=== PATIENT | female | born 1965 ===

== ENCOUNTER 2022-07-19 12:28 | Outpatient (RCR) | payer MEDICARE, MEDICAID, SELFPAY ==
--- NOTE | 2022-07-19 12:33 | HO.PHPIOP ---
Pt met with this technical report writer today 07/19/2022 for the purpose of completing an intake assessment for PHP treatment. Pt was referred through [facility] where she received treatment for Alcohol use disorder. Pt arrived to her appt with her sister,her sister informed this technical report writer that when she picked her sister up for her appt.,she found her passed out. This technical report writer discussed PHP with the Pt.,she did not appear interested in PHP. This technical report writer asked the Pt if she was actively drinking alcohol,the Pt responded yes,everyday This technical report writer informed Pt that she would not be able to start the program and recommended that she return to [facility] for detox and rehabilitation,this technical report writer provided [facility]'s phone # to the Pt. The Pt responded. I'll think about This technical report writer informed the Pt that once she completes detox/rehab,she can begin PHP.
== END 2022-07-19 23:59 | disposition home or self-care (01) ==
LOC: HO.PHPA 12:28
PROVIDERS: Visit Provider Psychiatry & Neurology Psychiatry
DX: F41.9 Anxiety disorder, unspecified (principal)

== ENCOUNTER 2022-12-13 12:45 | Outpatient (RCR) | payer MEDICARE, MEDICAID, SELFPAY ==
--- NOTE | 2022-12-14 09:22 | PC.NURSE ---
Ermelinda did not show up to the program this morning. I called her to f/u and left her a message to call me back.
--- NOTE | 2022-12-14 09:48 | PC.NURSE ---
I called Ermelinda and left her a second message to call me back and have not heard from her. I called Ermelinda's emergency call or contact centre manager (per protocol) Hawk Gonzales Ermelinda's brother' and left him a message to call me back.
--- NOTE | 2022-12-14 10:36 | PC.NURSE ---
I called patient's emergency contact Hawk again and he answered the phone. He is going to be at her home in 10 minutes and will check on her. He stated he will call me back and have her call me as well.
--- NOTE | 2022-12-14 10:54 | PC.NURSE ---
I spoke to Tiffany Parnell' emergency contact who stated he went to her home to check on her and she was sleeping. He stated she is ok however she did not want to get out of bed as she wanted to continue sleeping. I asked him if he could have her call me when she gets up and he stated he would. I asked him if she is planning on coming to the program and he stated he was not sure how serious she is about the program.
--- NOTE | 2022-12-14 13:36 | PC.NURSE ---
Ermelinda called the program and stated she just woke up and did not know what to do regarding attending the program. Ermelinda has difficulty getting up in the morning. I reviewed with Haylie Schofield Founder President And Ceo. Haylie will reach out to Ermelinda about rescheduling PHP appointment on Sunday as the program is closed on Sunday. Ermelinda is aware.
== END 2022-12-13 23:59 | disposition left against medical advice (07) ==
LOC: HO.PHPA 12:45
PROVIDERS: Visit Provider Psychiatry & Neurology Psychiatry
DX: F33.1 Major depressive disorder, recurrent, moderate (principal); F41.1 Generalized anxiety disorder; F10.20 Alcohol dependence, uncomplicated
CPT/HCPCS: 90791